=== PATIENT | female | born 1975 | race Caucasian/White ===

== ENCOUNTER 2016-12-30 08:56 | Day surgery (SDC) | payer OTHER ==
[~2016-12-30 08:56] MED LIST: ALLEGRA ALLERG180 MG OR; PAXIL40 M1 PO
--- NOTE | 2016-12-30 10:53 | Operative Note ---
Upper GI Endoscopy Procedure date: 12/30/16 Date of : 75 Procedure:Upper GI Endoscopy Esophagogastroduodenoscopy with cold biopsies Indications: Mrs. Velarde is a 41-year-old female who reports dyspepsia and reflux. This has improved with omeprazole, dietary measures and fiber bowel regimen. She continues to have right-sided abdominal pain that radiates into the back. There is a generalized soreness in the RIGHT upper quadrant. The patient did have a gallbladder ultrasound that did show sludge and small 2 mm gallbladder polyps. She had a normal HIDA scan. The patient does state that her mother and 2 sisters have had gallbladder disease. The patient does have normal liver chemistries and normal complete blood count. The patient reports moderate bloating and gassiness. She has had chronic constipation which improved with the probiotic align and fiber bowel regimen (MiraLAX plus Citrucel). She reports no melena. 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 Her celiac serologies were negative. Performing Provider: Bela Lion MD Referring Provider: Marcello Brady M.D. Sedation: Fentanyl 200 mg IV/Versed 9 mg IV Procedure: Prior to the procedure, a history and physical exam was performed, and patients medications and allergies were reviewed. The risks and benefits of the procedure and the sedation options and risks were discussed with the patient. All questions were answered and informed consent was obtained. The patient was brought to the procedure room. Patient identification and proposed procedure were verified by the physician and the nurse. The patient was placed in a left lateral decubitus position and the scope was passed under direct vision. Throughout the procedure, the patient's blood pressure, pulse, and oxygen saturations were monitored continuously. The endoscope was introduced through the mouth, and advanced to the second part of duodenum. The upper GI endoscopy was accomplished without difficulty. The patient tolerated the procedure well. Findings: The scope was passed directly into the upper esophagus and advanced to the third portion of the duodenum. The post bulbar duodenum and duodenal bulb were normal with normal mucosa and conniventes. 4 biopsies were taken from the duodenum to rule out celiac disease. The scope was withdrawn through a normal duodenal bulb and pylorus into the stomach. The remainder of the antrum, body and fundus of the stomach were grossly normal. There was some linear erythema of the antrum and body of the stomach consistent with linear reactive gastritis. Upon retroflexion there was no hiatal hernia. 2 biopsies were taken in the antrum and along the lesser curvature for histology and/or CLOtest. The scope was then withdrawn into the esophagus. There was a serrated Z line and evidence of nonerosive gastroesophageal reflux disease. There were tertiary contractions and evidence of mild esophageal dysmotility. The remainder of the esophageal mucosa was normal. Immediate complications: None EBL (ml): 0 Impression: 1. Nonerosive gastroesophageal reflux disease with mild esophageal dysmotility 2. Mild linear reactive gastritis Recommendations: I do feel that the patient's right-sided abdominal pain is suspicious for gallbladder disease and possibly chronic cholecystitis. Based upon her sludge/ gallbladder polyps, I am going to recommend laparoscopic cholecystectomy. The patient also has some functional dyspepsia and IBSsee. I would continue the present regimen. I will follow up the biopsies. at 1051
--- NOTE | 2016-12-30 10:53 | Operative Note ---
Colonoscopy ([facility]) Procedure date: 12/30/16 Date of : 75 Procedure:Colonoscopy Colonoscopy Indications: Mrs. Velarde is a 41-year-old female who is here for diagnostic colonoscopy. She continues to have right-sided abdominal pain that radiates into the back. There is a generalized soreness in the RIGHT upper quadrant. The patient did have a gallbladder ultrasound that did show sludge and small 2 mm gallbladder polyps. She had a normal HIDA scan. The patient does state that her mother and 2 sisters have had gallbladder disease. The patient does have normal liver chemistries and normal complete blood count. The patient reports moderate bloating and gassiness. She has had chronic constipation which improved with the probiotic align and fiber bowel regimen (MiraLAX plus Citrucel). The patient reports no rectal bleeding or weight loss. She does state that her maternal grandmother had colon cancer. This is her first colonoscopy for diagnostic purposes. She reports no melena. The patient does have heterozygous hemachromatosis by load work ( single mutation [id number]). Her celiac serologies were negative Performing Provider: Bela Lion MD Referrring Provider: Marcello Brady M.D. Sedation: Fentanyl 200 mg IV/Versed 11 mg IV (total additive to sedation from EGD) Procedure: Prior to the procedure, a history and physical exam was performed, and patient medications and allergies were reviewed. The risks and benefits of the procedure and the sedation options and risks were discussed with the patient. All questions were answered and informed consent was obtained. Patient identification and proposed procedure were verified by the physician and the nurse. The patient was placed in a left lateral decubitus position. Throughout the procedure, the patient's blood pressure, pulse, and oxygen saturations were monitored continuously. Findings: On digital rectal examination there was normal rectal tone. There were no external hemorrhoids. The colonoscope was introduced through the anal canal to the rectum and advanced to the cecum. The ileocecal valve and appendiceal orifice were identified. The scope was advanced a short distance into the ileum which appeared grossly normal. The scope was then withdrawn into the colon. The cecum, ascending, transverse, descending, sigmoid and rectum were grossly normal. There were no mucosal abnormalities identified. Upon retroflexion within the rectum there were grade 1 internal hemorrhoids. Impressions: 1. Normal colonoscopy with intubation of the terminal ileum 2. 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 I would still strongly consider cholecystectomy based upon her symptoms that are classic for biliary colic/gallbladder colic. She does have RIGHT upper quadrant pain radiating to the back exacerbated by fatty meals. She does have sludge and polyps. Complications: None EBL (ml): 0 at 1054
[2016-12-30 13:30] VITALS: BP 109/55
== END 2016-12-30 11:50 | disposition home or self-care (01) ==
LOC: SDC 08:56
PROVIDERS: Internal Medicine Gastroenterology
PROC: 0DB98ZX Excision of Duodenum, Via Natural or Artificial Opening Endoscopic, Diagnostic (ICD-10-PCS; 2016-12-30)
PROC: 0DB68ZX Excision of Stomach, Via Natural or Artificial Opening Endoscopic, Diagnostic (ICD-10-PCS; 2016-12-30)
PROC: 0DJD8ZZ Inspection of Lower Intestinal Tract, Via Natural or Artificial Opening Endoscopic (ICD-10-PCS; principal; 2016-12-30 10:00)
DX: R10.11 Right upper quadrant pain (principal); K58.1 Irritable bowel syndrome with constipation; K64.0 First degree hemorrhoids; K30 Functional dyspepsia; K81.1 Chronic cholecystitis; K21.9 Gastro-esophageal reflux disease without esophagitis; K22.4 Dyskinesia of esophagus; K29.60 Other gastritis without bleeding

== ENCOUNTER → 2017-01-02 | Outpatient (CLI) | payer OTHER ==
[2017-01-02 14:14] LABS: BUN 7 mg/dL (7-18)
[2017-01-02 14:16] LABS: GFR (ESTIMATED) 110 ML/MIN (59-)
[2017-01-02 17:05] LABS: HEMOGLOBIN 12.9 g/dL (12.2-16.2); LYMPH # 1.5 K/mm3 (0.7-4.5); LYMPH % 40.9 % (10-50.0)
== END ==
LOC: LAB 12:47
PROVIDERS: Surgery
DX: K82.9 Disease of gallbladder, unspecified (principal); Z01.812 Encounter for preprocedural laboratory examination